=== PATIENT | male | born 1935 | race Caucasian/White ===

== ENCOUNTER 2018-11-11 09:15 | Emergency (ER) | payer OTHER ==
[2018-11-11] MEDS ORDERED: Ondansetron 4 MG Tab.DIS PO ONE (09:40)
[2018-11-11] MEDS ORDERED: Acetaminophen/oxyCODONE 325-5 MG Tab PO ONE (09:49)
[2018-11-11] MEDS ORDERED: amLODIPine 5 MG Tab PO ONE (09:55)
[2018-11-11] MEDS ORDERED: Losartan 25 MG Tab PO SCH (10:00)
--- NOTE | 2018-11-11 10:05 | EDM.PDOC ---
ED HPI GENERAL MEDICAL PROBLEM - General Chief Complaint: Back Pain or Injury Stated Complaint: BACK PAIN Time Seen by Provider: 11/11/18 09:45 Source of Information: Reports: Patient, Old Records, Provider History Limitations: Reports: No Limitations - History of Present Illness INITIAL COMMENTS - FREE TEXT/NARRATIVE: 83 yo male here at the request of his oncologist for evaluation of low back pain associated with some nausea. Has known metastatic bladder CA and is on treatment for that. His oncologist feels he is at risk for ureteral obstruction. Wants him evaluated here. Patient has not had his BP meds yet today due to mild nausea. Onset: Gradual Onset Date: 11/10/18 Duration: Day(s):, Getting Worse (1+) Location: Reports: Back Quality: Reports: Ache Severity: Moderate Improves with: Reports: None Worsens with: Reports: None Context: Reports: Other (See HPI) Associated Symptoms: Reports: Nausea/Vomiting (no vomiting). 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 (500 mg only without much relief) Right Flank Pain Score (Numeric/FACES): 9 - Related Data Allergies Allergy/AdvReac Type Severity Reaction Status Date / Time [id number]-[id number] Reductase AdvReac Muscle Verified 11/11/18 09:28 Inhibitor Aches Home Meds: Home Meds Finasteride 1 tab PO DAILY 08/17/13 [History] amLODIPine Besylate [Amlodipine Besylate] 5 mg PO DAILY 08/17/13 [History] Acetaminophen/oxyCODONE [Percocet 325-5 MG] 1 each PO Q4H PRN #14 tab 11/11/18 [ Rx] Losartan Potassium 25 mg PO DAILY 11/11/18 [History] Ranitidine HCl [Ranitidine] 150 mg PO DAILY 11/11/18 [History] Past Medical History Cardiovascular History: Reports: High Cholesterol, Hypertension Gastrointestinal History: Reports: Cholelithiasis Genitourinary History: Reports: BPH Other Genitourinary History: bladder cancer 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 Psychiatric History: Reports: Depression Oncologic (Cancer) History: Reports: Bladder - Past Surgical History GI Surgical History: Reports: Cholecystectomy Social & Family History - Tobacco Use Smoking Status *Q: Former Smoker Used Tobacco, but Quit: Yes Month/Year Tobacco Last Used: 40years - Caffeine Use Caffeine Use: Reports: Coffee - Recreational Drug Use Recreational Drug Use: No ED ROS GENERAL - Review of Systems Review Of Systems: See Below Constitutional: Reports: No Symptoms HEENT: Reports: No Symptoms Respiratory: Reports: Shortness of Breath (minimal with exertion only) Cardiovascular: Reports: No Symptoms GI/Abdominal: Reports: Nausea. Denies: Abdominal Pain, Black Stool, Bloody Stool, Constipation, Diarrhea, Distension, Flatus, Hematemesis, Hematochezia, Vomiting : Reports: No Symptoms, Other (has bladder CA with mets) Musculoskeletal: Reports: Back Pain (low) Skin: Reports: No Symptoms Neurological: Reports: No Symptoms ED EXAM, UPPER BACK/NECK PAIN - Physical Exam Exam: See Below Exam Limited By: No Limitations General Appearance: Alert, WD/WN, No Apparent Distress Eye Exam: Bilateral Eye: Normal Inspection Ears Exam: Normal External Exam, Normal Canal, Hearing Grossly Normal, Normal TMs Nose Exam: Normal Inspection, No Blood Throat/Mouth Exam: Normal Inspection, Normal Lips, Normal Oropharynx, Normal Voice, No Airway Compromise Head Exam: Atraumatic, Normocephalic Neck Exam: Non-Tender GI/Abdominal: Normal Bowel Sounds, Soft, Non-Tender, No Distention Back Exam: Normal Inspection. No: CVA Tenderness (R), CVA Tenderness (L) Extremities: Normal Inspection, Normal Range of Motion, Non-Tender, No Pedal Edema Neurologic: merchandise supervisor II-XII nml As Tested, No Motor/Sensory Deficits, Alert, Normal Mood/Affect, Oriented x 3 Psychiatric: Normal Affect, Normal Mood Skin Exam: Normal Color, Warm/Dry Lymphatic: No Adenopathy Course - Vital Signs Text/Narrative:: pain much better after Percocet 1 po. Last Recorded V/S: Last Vital Signs Temp 36.9 C 11/11/18 09:26 Pulse 97 11/11/18 11:05 Resp 16 11/11/18 11:05 BP 134/88 11/11/18 11:05 Pulse Ox 94 L 11/11/18 11:05 - Orders/Labs/Meds Orders: Active Orders 24 hr Category Date Time Status Losartan [Cozaar] Med 11/11/18 10:00 Active 25 mg PO DAILY Sodium Chloride 0.9% [Normal Saline] 1,000 ml Med 11/11/18 11:02 Active IV .BOLUS Medication Orders Sodium Chloride (Normal Saline) 1,000 mls @ 1,000 mls/hr IV .BOLUS ONE Stop: 11/11/18 12:01 Last Admin: 11/11/18 11:15 Dose: 1,000 mls/hr Losartan Potassium (Cozaar) 25 mg PO DAILY MAIA Last Admin: 11/11/18 10:06 Dose: 25 mg Labs: Laboratory Tests 11/11/18 11/11/18 11/11/18 Range/Units 10:07 10:07 10:07 WBC 8.3 (4.5-11.0) K/uL RBC 4.89 (4.30-5.90) M/uL Hgb 14.4 (12.0-15.0) g/dL Hct 44.6 (40.0-54.0) % MCV 91 (80-98) fL MCH 29 (27-31) pg MCHC 32 (32-36) % Plt Count 316 (150-400) K/uL D-Dimer, Quantitative 3060 H (0.0-400.0) ng/mL Sodium 134 L (140-148) mmol/L Potassium 5.6 H (3.6-5.2) mmol/L Chloride 99 L (100-108) mmol/L Carbon Dioxide 26 (21-32) mmol/L Anion Gap 14.6 H (5.0-14.0) mmol/L BUN 23 H (7-18) mg/dL Creatinine 1.7 H (0.8-1.3) mg/dL Est Cr Clr Drug Dosing 32.92 mL/min Estimated GFR (MDRD) 39 L (>60) Glucose 154 H (74-106) mg/dL Calcium 9.3 (8.5-10.1) mg/dL Urine Color (YELLOW) Urine Appearance (CLEAR) Urine pH (5.0-8.0) Ur Specific [place] (1.008-1.030) Urine Protein (NEGATIVE) mg/dL Urine Glucose (UA) (NEGATIVE) mg/dL Urine Ketones (NEGATIVE) mg/dL Urine Occult Blood (NEGATIVE) Urine Nitrite (NEGATIVE) Urine Bilirubin (NEGATIVE) Urine Urobilinogen (0.2-1.0) EU/dL Ur Leukocyte Esterase (NEGATIVE) Urine RBC (0-5) Urine WBC (0-5) Ur Epithelial Cells Amorphous Sediment Urine Bacteria Urine Mucus 11/11/18 Range/Units 10:11 WBC (4.5-11.0) K/uL RBC (4.30-5.90) M/uL Hgb (12.0-15.0) g/dL Hct (40.0-54.0) % MCV (80-98) fL MCH (27-31) pg MCHC (32-36) % Plt Count (150-400) K/uL D-Dimer, Quantitative (0.0-400.0) ng/mL Sodium (140-148) mmol/L Potassium (3.6-5.2) mmol/L Chloride (100-108) mmol/L Carbon Dioxide (21-32) mmol/L Anion Gap (5.0-14.0) mmol/L BUN (7-18) mg/dL Creatinine (0.8-1.3) mg/dL Est Cr Clr Drug Dosing mL/min Estimated GFR (MDRD) (>60) Glucose (74-106) mg/dL Calcium (8.5-10.1) mg/dL Urine Color Yellow (YELLOW) Urine Appearance Clear (CLEAR) Urine pH 7.0 (5.0-8.0) Ur Specific [place] 1.020 (1.008-1.030) Urine Protein 100 H (NEGATIVE) mg/dL Urine Glucose (UA) Negative (NEGATIVE) mg/dL Urine Ketones Negative (NEGATIVE) mg/dL Urine Occult Blood Trace-intact H (NEGATIVE) Urine Nitrite Negative (NEGATIVE) Urine Bilirubin Negative (NEGATIVE) Urine Urobilinogen 0.2 (0.2-1.0) EU/dL Ur Leukocyte Esterase Negative (NEGATIVE) Urine RBC 5-10 H (0-5) Urine WBC 0-5 (0-5) Ur Epithelial Cells Few Amorphous Sediment Not seen Urine Bacteria Few Urine Mucus Few Meds: Medications Generic Name Dose Route Start Last Admin Trade Name Freq PRN Reason Stop Dose Admin Sodium Chloride 1,000 mls @ 1,000 mls/hr 11/11/18 11:02 11/11/18 11:15 Normal Saline IV 11/11/18 12:01 1,000 mls/hr .BOLUS ONE Administration Losartan Potassium 25 mg 11/11/18 10:00 11/11/18 10:06 Cozaar PO 25 mg DAILY MAIA Administration Discontinued Medications Generic Name Dose Route Start Last Admin Trade Name Freq PRN Reason Stop Dose Admin Amlodipine Besylate 5 mg 11/11/18 09:55 11/11/18 10:05 Norvasc PO 11/11/18 09:56 5 mg ONETIME ONE Administration Ondansetron HCl 4 mg 11/11/18 09:40 11/11/18 09:51 Zofran Odt PO 11/11/18 09:41 Not Given ONETIME ONE Oxycodone/Acetaminophen 1 tab 11/11/18 09:49 11/11/18 09:56 Percocet 325-5 Mg PO 11/11/18 09:50 1 tab ONETIME ONE Administration - Radiology Interpretation Free Text/Narrative:: Renal US-minimal L hydronephrosis Departure - Departure Time of Disposition: 12:10 Disposition: Home, Self-Care 01 Condition: Fair Clinical Impression: Elevated d-dimer Hydronephrosis Qualifiers: Hydronephrosis type: unspecified Qualified Code(s): N13.30 - Unspecified hydronephrosis Chronic renal failure Qualifiers: Chronic kidney disease stage: stage 3 (moderate) Qualified Code(s): N18.3 - Chronic kidney disease, stage 3 (moderate) Bladder cancer Qualifiers: Bladder location: unspecified site Qualified Code(s): C67.9 - Malignant neoplasm of bladder, unspecified - Discharge Information *PRESCRIPTION DRUG MONITORING PROGRAM REVIEWED*: No *COPY OF PRESCRIPTION DRUG MONITORING REPORT IN PATIENT MADHAV: No Prescriptions: Acetaminophen/oxyCODONE [Percocet 325-5 MG] 1 each PO Q4H PRN #14 tab PRN Reason: Pain Referrals: PCP,None [Primary Care Provider] - Additional Instructions: [facility] [place] [facility] VQ [facility] for possible lung blood clots. Take Percocet 1 every 4 hrs as needed for pain relief. - My Orders Last 24 Hours: My Active Orders 11/11/18 10:00 Losartan [Cozaar] 25 mg PO DAILY 11/11/18 11:02 Sodium Chloride 0.9% [Normal Saline] 1,000 ml IV .BOLUS - Assessment/Plan Last 24 Hours: My Active Orders 11/11/18 10:00 Losartan [Cozaar] 25 mg PO DAILY 11/11/18 11:02 Sodium Chloride 0.9% [Normal Saline] 1,000 ml IV .BOLUS
[2018-11-11] MEDS ORDERED: Sodium Chloride 0.9% 1,000 ML IV ONE (11:02)
--- NOTE | 2018-11-11 11:13 | CRLUS ---
INDICATION: Metastatic bladder carcinoma semi: Rule out right-sided hydronephrosis; right flank pain. COMPARISON: Ultrasound examination of the abdomen 06/11/2017. TECHNIQUE: Ultrasound examination of the kidneys. FINDINGS: The right kidney is measuring 10.5 x 5.4 x 6.3 cm and the left kidney is measuring 10.7 x 5.8 x 5.1 cm. Mild hydronephrosis left kidney; stable in appearance. No evidence of hydronephrosis involving the right kidney. A 4.9 x 3.8 x 4.4 cm cyst lower pole right kidney; stable in appearance. Small cyst lower pole left kidney. IMPRESSION: 1. Persistent left-sided hydronephrosis. 2. No evidence of hydronephrosis involving the right kidney. 3. No interval change. Dictated by Lakeisha Thurman MD @ Nov 11 2018 11:08AM Signed by Dr. Lakeisha Thurman @ Nov 11 2018 11:11AM
== END 2018-11-11 12:20 | disposition home or self-care (01) ==
LOC: JP.ED 09:15
DX: N13.30 Unspecified hydronephrosis (principal); C67.9 Malignant neoplasm of bladder, unspecified; C49.9 Malignant neoplasm of connective and soft tissue, unspecified; R79.1 Abnormal coagulation profile; I12.9 Hypertensive chronic kidney disease with stage 1 through stage 4 chronic kidney disease, or unspecified chronic kidney disease; N18.3 Chronic kidney disease, stage 3 (moderate); Z88.8 Allergy status to other drugs, medicaments and biological substances; Z79.899 Other long term (current) drug therapy; Z87.891 Personal history of nicotine dependence
CPT/HCPCS: 36415; 76775; 80048; 81001; 85027; 85379; 96360; 99284; A9270; J7030

== ENCOUNTER 2022-01-21 20:44 | Emergency (ER) | payer OTHER ==
[2022-01-21] MEDS ORDERED: Albuterol/Ipratropium 3.0-0.5 MG/3 ML Neb Soln NEB ONE (21:23)
[2022-01-21 21:39] LABS: CORONAVIRUS COVID-19 NAA POSITIVE (NEGATIVE)
== END 2022-01-21 22:55 | disposition home or self-care (01) ==
LOC: JP.ED 20:44
DX: U07.1 COVID-19 (principal); I10 Essential (primary) hypertension; Z90.49 Acquired absence of other specified parts of digestive tract; Z88.8 Allergy status to other drugs, medicaments and biological substances
CPT/HCPCS: 0241U; 36415; 71046; 80048; 84145; 85025; 94640; 99284; J7620